=== PATIENT | male | born 2000 | race Caucasian/White ===

== ENCOUNTER 2019-01-16 12:38 | Day surgery (SDC) | payer BC ==
[~2019-01-16] VITALS: Ht 177.8 cm; Wt 63.5 kg
[~2019-01-16 12:38] MED LIST: CEFAZOLIN SOD 2 GM in D5W 50 ML IV ONE; ONDANSETRON HCL 4 MG/2 ML VIAL IVP PRN; fentaNYL CITRATE/PF 100 MCG/2 ML AMP IVP PRN
[2019-01-16] MEDS ORDERED: LR 1,000 ML IV.SOLN IV ONE (13:20)
[2019-01-16] MEDS ORDERED: MIDAZOLAM HCL 5 MG/5 ML VIAL IVP ONE (13:20)
[2019-01-16] MEDS ORDERED: PROPOFOL 200MG/ 20ML VIAL (DIPRIVAN) IV ONE (13:20)
[2019-01-16] MEDS ORDERED: BUPIVACAINE /PF 0.25% 30 ML VIAL INJ ONE (13:20)
[2019-01-16] MEDS ORDERED: LIDOCAINE/EPI 1% 1:100000 20 ML VIAL INJ ONE (13:20)
[2019-01-16] MEDS ORDERED: NS IRRIG SOLN 1000 ML IR ONE (13:20)
[2019-01-16] MEDS ORDERED: POLYMYXIN 500,000/BACIT.10,000 UNITS in NS IRR 1 L IR ONE (14:08)
[2019-01-16] MEDS ORDERED: HYDROcodone/ACETAMIN 5-325 MG TAB (NORCO/ VICODIN) PO PRN (14:45)
[2019-01-16 15:43] VITALS: BP_SYST 118
== END 2019-01-16 15:58 | disposition home or self-care (01) ==
LOC: SDS 12:38
PROVIDERS: ATTEND Surgery
DX: L98.0 Pyogenic granuloma (principal); Z90.49 Acquired absence of other specified parts of digestive tract
CPT/HCPCS: 11402; 87070; 87075; 87186; 88304; J0690; J2250; J2704; J3490; J7060; J7120; 88302